=== PATIENT | male | born 2005 ===

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

== ENCOUNTER 2024-06-25 18:21 | Emergency (ER) | payer OTHER ==
[~2024-06-25] VITALS: Ht 170.2 cm; Wt 65.8 kg
[2024-06-25 19:50] VITALS: BP 137/78
== END 2024-06-25 20:31 | disposition home or self-care (01) ==
LOC: ER 18:21
DX: R07.9 Chest pain, unspecified (principal); K21.9 Gastro-esophageal reflux disease without esophagitis
CPT/HCPCS: 71046; 93005; 93010; 99285-25